=== PATIENT | female | born 1940 | race Caucasian/White ===

== ENCOUNTER 2018-03-06 09:56 | Outpatient (CLI) | payer OTHER | END 2018-03-06 10:04 | disposition home or self-care (01) | LOC: SONOGRAMA 09:56 | DX: N60.11 Diffuse cystic mastopathy of right breast (principal); N60.12 Diffuse cystic mastopathy of left breast; N63.21 Unspecified lump in the left breast, upper outer quadrant ==

== ENCOUNTER → 2018-05-01 | Day surgery (SDC) | payer OTHER ==
[~2018-05-01] MED LIST: HYZAAR 100-12.1 EACH; LIPITOR80 MG; TENORMIN50 MG
== END | disposition home or self-care (01) ==
LOC: CIR.AMB 05:25
DX: C50.412 Malignant neoplasm of upper-outer quadrant of left female breast (principal)